=== PATIENT | female | born 1965 | race Caucasian/White ===

== ENCOUNTER 2022-07-04 20:50 | Emergency (ER) | payer MEDICAID ==
[~2022-07-04] VITALS: Ht 165.1 cm; Wt 60.8 kg
[2022-07-04] MEDS ORDERED: SERT-438 PO (21:10)
[2022-07-04] MEDS ORDERED: TRAM50TA2 PO (21:10)
--- NOTE | 2022-07-04 21:19 | NUR ---
Dr Duran at bedside, MSE in progress
[2022-07-04] MEDS ORDERED: KETOROLAC TROMETHAMINE 30 MG INJ IVP ONE (21:30)
[2022-07-04] MEDS ORDERED: diphenhydrAMINE 50 MG/1 ML VIAL IV ONE (21:30)
[2022-07-04] MEDS ORDERED: IV NS 1000 ML 1,000 ML IV ONE (21:30)
[2022-07-04] MEDS ORDERED: METOCLOPRAMIDE HCL 10 MG/2 ML VIAL IV ONE (21:30)
[2022-07-04] MEDS ORDERED: METOCLOPRAMIDE HCL 10 MG/2 ML VIAL ONE (21:36)
[2022-07-04] MEDS ORDERED: KETOROLAC TROMETHAMINE 30 MG INJ ONE (21:36)
[2022-07-04] MEDS ORDERED: diphenhydrAMINE 50 MG/1 ML VIAL ONE (21:36)
[2022-07-04 22:03] LABS: HEMATOCRIT 36.5 % (31.2-41.9); MEAN CORPUSCULAR HEMOGLOBIN 25.4 uug (24.7-32.8); MEAN CORPUSCULAR VOLUME 77.8 fL (75.5-95.3); PLATELET COUNT (AUTO) 266 K/uL (179-408)
[2022-07-04 22:09] LABS: CREATININE 0.6 mg/dL (0.6-1.3)
[2022-07-04 22:39] LABS: MAGNESIUM 1.8 mg/dL (1.8-2.4)
[2022-07-04] MEDS ORDERED: CYANOCOBALAMIN 1000 MCG/ML VIAL ONE (22:56)
[2022-07-04] MEDS ORDERED: MAGNESIUM SULFATE/D5W 200 ML ONE (22:56)
[2022-07-04] MEDS ORDERED: CYANOCOBALAMIN 1000 MCG/ML VIAL IM ONE (23:00)
--- NOTE | 2022-07-04 23:00 | NUR ---
called tank house operator Latisha SALEEM. Patient needs 3 bags of Magnesium, only 2 bags available in the [facility]
[2022-07-04] MEDS: MAGNESIUM SULFATE/D5W 100 ML IV SCH ×3 (23:10→23:53)
--- NOTE | 2022-07-04 23:53 | NUR ---
patient was given total of 2gm of Magnesium. 3rd bag was not given. Was told by Dr Renee cope to just give 2.
[2022-07-04] MEDS ORDERED: CYAN-10 IJ (23:59)
[2022-07-04] MEDS ORDERED: OXYC-128 PO (23:59)
[2022-07-04] MEDS ORDERED: SYRI-29 MC (23:59)
--- NOTE | 2022-07-05 03:10 | NUR ---
Patient is able to walk to the restroom with steady gait
--- NOTE | 2022-07-05 03:30 | NUR ---
Patient discharged to home in stable condition. Written and verbal after care instructions given. Patient verbalizes understanding of instructions. Stressed follow up or return to ER for worsening s/s. Patient is a/ox4, NAD noted, patient is able to walk with steady gait
[2022-07-05 03:53] VITALS: BP 117/76
== END 2022-07-05 03:53 | disposition home or self-care (01) ==
LOC: ER 20:53
DX: R51.9 Headache, unspecified (principal); I10 Essential (primary) hypertension; R42 Dizziness and giddiness; E53.8 Deficiency of other specified B group vitamins; G89.29 Other chronic pain; R10.30 Lower abdominal pain, unspecified
CPT/HCPCS: 99285; 96365; 96375; 96361; 80048; 82607; 83735; 85025; 36415; 96372; 83921; J3420; J1200; J1885; J3475; J2765; J7040; A4663